=== PATIENT | male | born 1970 | race African-American/Black ===

== ENCOUNTER 2016-08-06 20:42 | Emergency (ER) | payer BC ==
[~2016-08-06] VITALS: Ht 165.1 cm; Wt 59.0 kg
[~2016-08-06 20:42] MED LIST: ALBUTEROL INH; ALBUTEROL NEB; HYDR-971 PO; OXYC-323 PO; POLY17PO5 PO; TRAM50TA PO
[2016-08-06 21:31] VITALS: BP 115/65
--- NOTE | 2016-08-07 00:28 | PHYS DOC ---
Past Medical History Past Medical History: Asthma, COPD Past Surgical History: Other Additional Past Surgical Histo: hernia repair Alcohol Use: Heavy Drug Use: Marijuana Adult General Chief Complaint Chief Complaint: ABDOMINAL PAIN HPI HPI Patient is a 46 year old male who presents with intermittent right lower quadrant abdominal pain over his right inguinal hernia incision since increasing his work activity lately. This is been bothersome over the past 2 days. Whenever he is moving heavy materials at work, he gets a sharp/achy pain about his hernia incision. He denies pain currently. He denies testicle pain, scrotal swelling, abdominal wall bulge, nausea or vomiting, diarrhea, constipation, fever or chills. Review of Systems Review of Systems Constitutional: Denies fever or chills [] Eyes: Denies change in visual acuity, redness, or eye pain [] HENT: Denies nasal congestion or sore throat [] Respiratory: Denies cough or shortness of breath [] Cardiovascular: No additional information not addressed in HPI [] GI: Denies nausea, vomiting, bloody stools or diarrhea [] : Denies dysuria or hematuria [] Musculoskeletal: Denies back pain or joint pain [] Integument: Denies rash or skin lesions [] Neurologic: Denies headache, focal weakness or sensory changes [] Endocrine: Denies polyuria or polydipsia [] Allergies Allergies Allergies Coded Allergies Type Severity Reaction Last Updated Verified No Known Drug Allergies 03/07/16 No Physical Exam Physical Exam Constitutional: Well developed, well nourished, no acute distress, non-toxic appearance. [] HENT: Normocephalic, atraumatic, bilateral external ears normal, oropharynx moist, nose normal. [] Eyes: PERRLA, EOMI. [] Neck: Normal range of motion, supple. [] Cardiovascular:Heart rate regular rhythm [] Lungs & Thorax: Bilateral breath sounds clear to auscultation [] Abdomen: Bowel sounds normal, soft, minimal tenderness over right lower quadrant incision with no palpable or visual abnormality, well healed incision scar. No palpable inguinal hernia on genitourinary exam. [] Skin: Warm, dry, no erythema, no rash. [] Back: Normal range of motion. [] Extremities: ROM intact, no edema. [] Neurologic: Alert and oriented X 3, normal motor function, normal sensory function, no focal deficits noted. [] Psychologic: Affect normal, judgement normal, mood normal. [] Current Patient Data Vital Signs Vital Signs Date Time Temp Pulse Resp B/P Pulse Ox O2 Delivery O2 Flow Rate FiO2 08/06/16 21:31 97.4 70 18 115/65 96 Room Air 97.4 Course & Med Decision Making Course & Med Decision Making He appears well on exam. No imaging indicated at this time. Encouraged him to follow-up with his primary care doctor and surgeon. Return precautions given. He understands and agrees with plan. Dragon Disclaimer Dragon Disclaimer This electronic medical record was generated, in whole or in part, using a voice recognition dictation system. Departure Departure Impression: Primary Impression: Abdominal pain Disposition: HOME, SELF-CARE Condition: STABLE Referrals: CRISTINO HO MD (PCP) Patient Instructions: Hernia, Surgical Repair, Care After Additional Instructions: Take Tylenol or ibuprofen as needed for pain. Follow-up with your primary care doctor and general surgery. Please call for appointment. Return for any concerns. Problem Qualifiers Primary Impression: Abdominal pain Abdominal location: right lower quadrant Qualified Code: R10.31 - Right lower quadrant pain Mena DON MD Aug 07, 2016 00:28
== END 2016-08-07 00:41 | disposition home or self-care (01) ==
LOC: ER 20:42
DX: R10.31 Right lower quadrant pain (principal); J44.9 Chronic obstructive pulmonary disease, unspecified; J45.909 Unspecified asthma, uncomplicated; F12.10 Cannabis abuse, uncomplicated
CPT/HCPCS: 99284

== ENCOUNTER 2018-06-23 19:58 | Emergency (ER) | payer SELFPAY ==
[~2018-06-23] VITALS: Ht 167.6 cm; Wt 13.6 kg
[~2018-06-23 19:58] MED LIST changes: +HYDR-3164 PO; -HYDR-971 PO; -OXYC-323 PO; +OXYC1TAB15 PO; +POLY17PO29 PO; -POLY17PO5 PO
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
[2018-06-23] MEDS ORDERED: KETOROLAC 15 MG/ML VIAL. IV ONE (21:00)
--- NOTE | 2018-06-23 21:00 | RAD ---
EXAM: AP View of the chest DATE: 06/23/2018 8:29 PM INDICATION: CHEST PAIN COMPARISON: No Prior FINDINGS: The heart is not enlarged. Mediastinal and hilar contours are normal. No focal parenchymal airspace opacity. No pleural effusion or pneumothorax. IMPRESSION: 1. No radiographic evidence for acute cardiopulmonary process. Electronically signed by: Aramis Gray MD (06/23/2018 8:56 PM) [facility]
[2018-06-23 21:15] LABS: BASO # 0.1 x10^3/uL (0.0-0.2); BASO % 1 % (0-3); EOS # 0.1 x10^3/uL (0.0-0.7); EOS % 3 % (0-3); HEMATOCRIT 37.3 % (39.0-53.0); HEMOGLOBIN 12.9 g/dL (13.0-17.5); LYMPH # 2.6 x10^3/uL (1.0-4.8); LYMPH % 48 % (24-48); MEAN CORPUSCULAR HEMOGLOBIN 31 pg (25-35); MEAN CORPUSCULAR HGB CONC 35 g/dL (31-37); MEAN CORPUSCULAR VOLUME 90 fL (79-100); MONO # 0.3 x10^3/uL (0.0-1.1); MONO % 6 % (0-9); NEUT # 2.4 x10^3uL (1.8-7.7); NEUT % 43 % (31-73); PLATELET COUNT 205 x10^3/uL (140-400); RED BLOOD COUNT 4.15 x10^6/uL (4.30-5.70); RED CELL DISTRIBUTION WIDTH 13.1 % (11.5-14.5); WHITE BLOOD COUNT 5.5 x10^3/uL (4.0-11.0)
[2018-06-23 21:25] VITALS: BP 100/51
[2018-06-23 21:27] LABS: CALCIUM 8.8 mg/dL (8.5-10.1); CREATININE 1.5 mg/dL (0.7-1.3); GFR 60.7; POTASSIUM 3.5 mmol/L (3.5-5.1)
[2018-06-23 21:33] LABS: ALBUMIN 3.3 g/dL (3.4-5.0); MAGNESIUM 1.7 mg/dL (1.8-2.4); TOTAL BILIRUBIN 0.3 mg/dL (0.2-1.0); TOTAL PROTEIN 6.7 g/dL (6.4-8.2)
[2018-06-23 21:50] LABS: PROTHROMBIN TIME PATIENT 12.6 SEC (11.7-14.0)
[2018-06-23 22:04] LABS: D-DIMER 0.39 ug/mlFEU (0.00-0.50)
[2018-06-23] MEDS ORDERED: MELO7.5T29 PO (22:14)
--- NOTE | 2018-06-24 06:45 | EKG ---
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
== END 2018-06-23 22:22 | disposition home or self-care (01) ==
LOC: ER 19:58
DX: R07.89 Other chest pain (principal); F10.20 Alcohol dependence, uncomplicated; J44.9 Chronic obstructive pulmonary disease, unspecified; Y90.9 Presence of alcohol in blood, level not specified
CPT/HCPCS: 36415; 71045; 80053; 83690; 83735; 83880; 84484; 85025; 85379; 85610; 93005; 96374; 99284; J1885

== ENCOUNTER 2018-12-07 17:27 | Emergency (ER) | payer SELFPAY ==
[~2018-12-07] VITALS: Ht 165.1 cm; Wt 59.0 kg
[~2018-12-07 17:27] MED LIST changes: +MELO7.5T29 PO
[2018-12-07 17:53] VITALS: BP 115/68
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
[2018-12-07] MEDS ORDERED: PERM60CR12 TP (18:23)
[2018-12-07] MEDS ORDERED: HYDR25TA PO (18:23)
== END 2018-12-07 18:32 | disposition home or self-care (01) ==
LOC: ER 17:27
DX: S60.469A Insect bite (nonvenomous) of unspecified finger, initial encounter (principal); S90.466A Insect bite (nonvenomous), unspecified lesser toe(s), initial encounter; J44.9 Chronic obstructive pulmonary disease, unspecified; F10.20 Alcohol dependence, uncomplicated; Y90.9 Presence of alcohol in blood, level not specified; W57.XXXA Bitten or stung by nonvenomous insect and other nonvenomous arthropods, initial encounter; Y93.89 Activity, other specified; Y92.89 Other specified places as the place of occurrence of the external cause; Y99.8 Other external cause status
CPT/HCPCS: 99283

== ENCOUNTER 2019-03-10 12:56 | Inpatient (IN) | payer SELFPAY ==
[~2019-03-10] VITALS: Ht 165.1 cm; Wt 50.8 kg
[~2019-03-10 12:56] MED LIST changes: +HYDR25TA PO; +PERM60CR12 TP
[2019-03-10] MEDS ORDERED: IV NORMAL SALINE 1000ML BAG 1,000 ML IV ONE (13:45)
[2019-03-10] MEDS ORDERED: PROCHLORPERAZINE 10 MG/2 ML VIAL. IV ONE (13:45)
[2019-03-10 13:54] LABS: BASO % 1 % (0-3); EOS # 0.1 x10^3/uL (0.0-0.7); EOS % 2 % (0-3); HEMATOCRIT 43.3 % (39.0-53.0); HEMOGLOBIN 14.5 g/dL (13.0-17.5); LYMPH # 2.2 x10^3/uL (1.0-4.8); LYMPH % 37 % (24-48); MEAN CORPUSCULAR HEMOGLOBIN 30 pg (25-35); MEAN CORPUSCULAR HGB CONC 34 g/dL (31-37); MEAN CORPUSCULAR VOLUME 90 fL (79-100); MONO # 0.4 x10^3/uL (0.0-1.1); MONO % 6 % (0-9); NEUT # 3.2 x10^3/uL (1.8-7.7); NEUT % 54 % (31-73); PLATELET COUNT 286 x10^3/uL (140-400); RED BLOOD COUNT 4.84 x10^6/uL (4.30-5.70); RED CELL DISTRIBUTION WIDTH 13.7 % (11.5-14.5)
[2019-03-10 13:56] LABS: BILIRUBIN,URINE NEGATIVE (NEG); CLARITY,URINE CLEAR; COLOR,URINE YELLOW; NITRITE,URINE NEGATIVE (NEG); PH,URINE 7.5; PROTEIN,URINE NEGATIVE (NEG-TRACE)
--- NOTE | 2019-03-10 14:03 | RAD ---
Examination: CT HEAD WO CONTRAST History: Headache, lightheadedness Comparison/Correlation: None Findings: Axial images of the head were obtained without contrast. Ventricles are normal size. No intracranial hemorrhage, midline shift, or mass effect. Globes and optic nerves are unremarkable. Minimal posterior to the right ethmoid air cells evident. Impression: No suspicious process. PQRS Compliance Statement: One or more of the following individualized dose reduction techniques were utilized for this examination: 1. Automated exposure control 2. Adjustment of the mA and/or kV according to patient size 3. Use of iterative reconstruction technique Electronically signed by: Jake Lorenzana MD (03/10/2019 2:00 PM) [facility]
[2019-03-10 14:04] LABS: BARBITURATES NEG (NEG); BENZODIAZEPINES NEG (NEG); CANNABINOIDS POS (NEG); COCAINE NEG (NEG); METHADONE NEG (NEG); OPIATES NEG (NEG); PHENCYCLIDINE NEG (NEG)
[2019-03-10 14:07] LABS: AMPHETAMINE/METHAMPHETAMINE POS (NEG)
[2019-03-10 14:13] LABS: RBC,URINE 0 /HPF (0-2); WBC,URINE RARE /HPF (0-4)
[2019-03-10 14:14] LABS: BACTERIA,URINE 0 /HPF (0-FEW)
--- NOTE | 2019-03-10 14:23 | RAD ---
CHEST PA LATERAL History: COPD. Comparison: June 23, 2018 Findings: No consolidation or pleural effusion. Normal heart size. Hyperinflation. Right lower lobe calcified granuloma posteriorly, unchanged. Impression: 1. No acute cardiopulmonary process. Electronically signed by: Ernesto Castorena DO (03/10/2019 2:20 PM) [id number]
[2019-03-10 15:22] LABS: CALCIUM 8.4 mg/dL (8.5-10.1); GFR 96.9; POTASSIUM 3.7 mmol/L (3.5-5.1)
[2019-03-10 15:28] LABS: ALBUMIN 3.2 g/dL (3.4-5.0); ALBUMIN/GLOBULIN RATIO 1.1 (1.0-1.7); TOTAL BILIRUBIN 0.5 mg/dL (0.2-1.0); TOTAL PROTEIN 6.1 g/dL (6.4-8.2)
--- NOTE | 2019-03-10 15:32 | EKG ---
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
[2019-03-10] MEDS ORDERED: MECLIZINE HCL 12.5 MG TABLET. PO ONE (16:15)
[2019-03-10] MEDS ORDERED: ONDANSETRON PF 4 MG/2 ML VIAL. IV PRN (17:30)
[2019-03-10] MEDS ORDERED: ACETAMINOPHEN 325 MG TABLET. PO PRN (17:30)
[2019-03-10 19:00] VITALS: BP 99/50
--- NOTE | 2019-03-10 19:20 | NUR ---
Pt arrived to the floor via cart with Er nurse at 1910. There were no telemetry leads to put pt on telemetry, called group home supervisor and she is going to work on getting more leads. Pt is currently stable and resting comfortably in bed.
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
[2019-03-10 23:55] VITALS: BP 105/67
[2019-03-11 03:31] VITALS: BP 110/75
[2019-03-11 07:00] VITALS: BP 103/71
[2019-03-11] MEDS ORDERED: MECLIZINE HCL 12.5 MG TABLET. PO PRN (09:00)
[2019-03-11 11:00] VITALS: BP 89/56
--- NOTE | 2019-03-11 11:02 | PDOC ---
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 hypotension, volume depleted admit consult Neurology. P.r.n. Antivert, home meds, DVT prophylaxis. Full code. Frequent labs, PT, OT. iv fluids 26 min pt exam, chart review, > 50% of time spent with exam, chart review, pt care coordination Vitals Vitals Vital Signs Date Time Temp Pulse Resp B/P (MAP) Pulse Ox O2 Delivery O2 Flow Rate FiO2 03/11/19 07:00 98.2 50 16 103/71 (82) 100 Room Air 98.2 Physical Exam Physical Exam GENERAL: No apparent distress. Alert and oriented. HEENT: Head is normocephalic, atraumatic, pupils were equally round and reactive to light and accommodation. NECK: Supple, no JVD, no thyromegaly was noted. LUNGS: Clear to auscultation in all lung au without rhonchi or wheezing. HEART: RRR, S1, S2 present. Peripheral pulses intact, no obvious murmurs were noted. ABDOMEN: Soft, nontender. Positive bowel sounds no organomegaly, normal bowel sounds. EXTREMITIES: Without any cyanosis, clubbing, or edema. Pedal pulses intact, Homans sign is negative. NEUROLOGIC: He has dizziness with standing and has nystagmus to the left. PSYCHIATRIC: Normal affect, normal mood. Stable. SKIN: No ulcerations or rashes, good skin turgor, no jaundice. VASCULAR: Good capillary refill, neurovascular bundle appears to be intact. General: Alert, Oriented X3, Cooperative, No acute distress Heart: Regular rate Lungs: Clear Abdomen: Soft, No tenderness Extremities: No cyanosis Labs LABS CHEST PA LATERAL History: COPD. Comparison: June 23, 2018 Findings: No consolidation or pleural effusion. Normal heart size. Hyperinflation. Right lower lobe calcified granuloma posteriorly, unchanged. Impression: 1. No acute cardiopulmonary process. Electronically signed by: Ernesto Castorena DO (03/10/2019 2:20 PM) [id number] Examination: CT HEAD WO CONTRAST History: Headache, lightheadedness Comparison/Correlation: None Findings: Axial images of the head were obtained without contrast. Ventricles are normal size. No intracranial hemorrhage, midline shift, or mass effect. Globes and optic nerves are unremarkable. Minimal posterior to the right ethmoid air cells evident. Impression: No suspicious process. PQRS Compliance Statement: One or more of the following individualized dose reduction techniques were utilized for this examination: 1. Automated exposure control 2. Adjustment of the mA and/or kV according to patient size 3. Use of iterative reconstruction technique Electronically signed by: Jake Lorenzana MD (03/10/2019 2:00 PM) [facility] Laboratory Tests Test 03/10/19 13:15 03/10/19 13:18 03/10/19 13:41 03/10/19 14:45 Glucose (Fingerstick) 88 mg/dL (70-99) Urine Collection Type Unknown Urine Color Yellow Urine Clarity Clear Urine pH 7.5 Urine Specific [place] 1.025 Urine Protein Negative mg/dL (NEG-TRACE) Urine Glucose (UA) Negative mg/dL (NEG) Urine Ketones (Stick) Negative mg/dL (NEG) Urine Blood Negative (NEG) Urine Nitrite Negative (NEG) Urine Bilirubin Negative (NEG) Urine Urobilinogen Dipstick 1.0 mg/dL (0.2 mg/dL) Urine Leukocyte Esterase Negative (NEG) Urine RBC 0 /HPF (0-2) Urine WBC Rare /HPF (0-4) Urine Squamous Epithelial Cells None /LPF Urine Bacteria 0 /HPF (0-FEW) Urine Opiates Screen Neg (NEG) Urine Methadone Screen Neg (NEG) Urine Barbiturates Neg (NEG) Urine Phencyclidine Screen Neg (NEG) Urine Amphetamine/Methamphetamine Pos (NEG) Urine Benzodiazepines Screen Neg (NEG) Urine Cocaine Screen Neg (NEG) Urine Cannabinoids Screen Pos (NEG) Urine Ethyl Alcohol Neg (NEG) White Blood Count 6.0 x10^3/uL (4.0-11.0) Red Blood Count 4.84 x10^6/uL (4.30-5.70) Hemoglobin 14.5 g/dL (13.0-17.5) Hematocrit 43.3 % (39.0-53.0) Mean Corpuscular Volume 90 fL (79-100) Mean Corpuscular Hemoglobin 30 pg (25-35) Mean Corpuscular Hemoglobin Concent 34 g/dL (31-37) Red Cell Distribution Width 13.7 % (11.5-14.5) Platelet Count 286 x10^3/uL (140-400) Neutrophils (%) (Auto) 54 % (31-73) Lymphocytes (%) (Auto) 37 % (24-48) Monocytes (%) (Auto) 6 % (0-9) Eosinophils (%) (Auto) 2 % (0-3) Basophils (%) (Auto) 1 % (0-3) Neutrophils # (Auto) 3.2 x10^3/uL (1.8-7.7) Lymphocytes # (Auto) 2.2 x10^3/uL (1.0-4.8) Monocytes # (Auto) 0.4 x10^3/uL (0.0-1.1) Eosinophils # (Auto) 0.1 x10^3/uL (0.0-0.7) Basophils # (Auto) 0.0 x10^3/uL (0.0-0.2) Sodium Level 144 mmol/L (136-145) Potassium Level 3.7 mmol/L (3.5-5.1) Chloride Level 106 mmol/L (98-107) Carbon Dioxide Level 31 mmol/L (21-32) Anion Gap 7 (6-14) Blood Urea Nitrogen 13 mg/dL (8-26) Creatinine 1.0 mg/dL (0.7-1.3) Estimated GFR (Cockcroft-Gault) 96.9 BUN/Creatinine Ratio 13 (6-20) Glucose Level 92 mg/dL (70-99) Calcium Level 8.4 mg/dL (8.5-10.1) Total Bilirubin 0.5 mg/dL (0.2-1.0) Aspartate Amino Transf (AST/SGOT) 17 U/L (15-37) Alanine Aminotransferase (ALT/SGPT) 23 U/L (16-63) Alkaline Phosphatase 66 U/L (46-116) Troponin I Quantitative < 0.017 ng/mL (0.000-0.055) Total Protein 6.1 g/dL (6.4-8.2) Albumin 3.2 g/dL (3.4-5.0) Albumin/Globulin Ratio 1.1 (1.0-1.7) Test 03/10/19 20:45 Glucose (Fingerstick) 91 mg/dL (70-99) Troponin I Quantitative < 0.017 ng/mL (0.000-0.055) Assessment and Plan Assessmemt and Plan Problems Medical Problems: (1) Dizziness Status: Acute (2) Light-headed feeling Status: Acute Comment Review of Relevant I have reviewed the following items tank (where applicable) has been applied. Labs Laboratory Tests Test 03/10/19 13:15 03/10/19 13:18 03/10/19 13:41 03/10/19 14:45 Glucose (Fingerstick) 88 mg/dL (70-99) Urine Collection Type Unknown Urine Color Yellow Urine Clarity Clear Urine pH 7.5 Urine Specific [place] 1.025 Urine Protein Negative mg/dL (NEG-TRACE) Urine Glucose (UA) Negative mg/dL (NEG) Urine Ketones (Stick) Negative mg/dL (NEG) Urine Blood Negative (NEG) Urine Nitrite Negative (NEG) Urine Bilirubin Negative (NEG) Urine Urobilinogen Dipstick 1.0 mg/dL (0.2 mg/dL) Urine Leukocyte Esterase Negative (NEG) Urine RBC 0 /HPF (0-2) Urine WBC Rare /HPF (0-4) Urine Squamous Epithelial Cells None /LPF Urine Bacteria 0 /HPF (0-FEW) Urine Opiates Screen Neg (NEG) Urine Methadone Screen Neg (NEG) Urine Barbiturates Neg (NEG) Urine Phencyclidine Screen Neg (NEG) Urine Amphetamine/Methamphetamine Pos (NEG) Urine Benzodiazepines Screen Neg (NEG) Urine Cocaine Screen Neg (NEG) Urine Cannabinoids Screen Pos (NEG) Urine Ethyl Alcohol Neg (NEG) White Blood Count 6.0 x10^3/uL (4.0-11.0) Red Blood Count 4.84 x10^6/uL (4.30-5.70) Hemoglobin 14.5 g/dL (13.0-17.5) Hematocrit 43.3 % (39.0-53.0) Mean Corpuscular Volume 90 fL (79-100) Mean Corpuscular Hemoglobin 30 pg (25-35) Mean Corpuscular Hemoglobin Concent 34 g/dL (31-37) Red Cell Distribution Width 13.7 % (11.5-14.5) Platelet Count 286 x10^3/uL (140-400) Neutrophils (%) (Auto) 54 % (31-73) Lymphocytes (%) (Auto) 37 % (24-48) Monocytes (%) (Auto) 6 % (0-9) Eosinophils (%) (Auto) 2 % (0-3) Basophils (%) (Auto) 1 % (0-3) Neutrophils # (Auto) 3.2 x10^3/uL (1.8-7.7) Lymphocytes # (Auto) 2.2 x10^3/uL (1.0-4.8) Monocytes # (Auto) 0.4 x10^3/uL (0.0-1.1) Eosinophils # (Auto) 0.1 x10^3/uL (0.0-0.7) Basophils # (Auto) 0.0 x10^3/uL (0.0-0.2) Sodium Level 144 mmol/L (136-145) Potassium Level 3.7 mmol/L (3.5-5.1) Chloride Level 106 mmol/L (98-107) Carbon Dioxide Level 31 mmol/L (21-32) Anion Gap 7 (6-14) Blood Urea Nitrogen 13 mg/dL (8-26) Creatinine 1.0 mg/dL (0.7-1.3) Estimated GFR (Cockcroft-Gault) 96.9 BUN/Creatinine Ratio 13 (6-20) Glucose Level 92 mg/dL (70-99) Calcium Level 8.4 mg/dL (8.5-10.1) Total Bilirubin 0.5 mg/dL (0.2-1.0) Aspartate Amino Transf (AST/SGOT) 17 U/L (15-37) Alanine Aminotransferase (ALT/SGPT) 23 U/L (16-63) Alkaline Phosphatase 66 U/L (46-116) Troponin I Quantitative < 0.017 ng/mL (0.000-0.055) Total Protein 6.1 g/dL (6.4-8.2) Albumin 3.2 g/dL (3.4-5.0) Albumin/Globulin Ratio 1.1 (1.0-1.7) Test 03/10/19 20:45 Glucose (Fingerstick) 91 mg/dL (70-99) Troponin I Quantitative < 0.017 ng/mL (0.000-0.055) Laboratory Tests Test 03/10/19 13:15 03/10/19 13:18 03/10/19 13:41 03/10/19 14:45 Glucose (Fingerstick) 88 mg/dL (70-99) Urine Collection Type Unknown Urine Color Yellow Urine Clarity Clear Urine pH 7.5 Urine Specific [place] 1.025 Urine Protein Negative mg/dL (NEG-TRACE) Urine Glucose (UA) Negative mg/dL (NEG) Urine Ketones (Stick) Negative mg/dL (NEG) Urine Blood Negative (NEG) Urine Nitrite Negative (NEG) Urine Bilirubin Negative (NEG) Urine Urobilinogen Dipstick 1.0 mg/dL (0.2 mg/dL) Urine Leukocyte Esterase Negative (NEG) Urine RBC 0 /HPF (0-2) Urine WBC Rare /HPF (0-4) Urine Squamous Epithelial Cells None /LPF Urine Bacteria 0 /HPF (0-FEW) Urine Opiates Screen Neg (NEG) Urine Methadone Screen Neg (NEG) Urine Barbiturates Neg (NEG) Urine Phencyclidine Screen Neg (NEG) Urine Amphetamine/Methamphetamine Pos (NEG) Urine Benzodiazepines Screen Neg (NEG) Urine Cocaine Screen Neg (NEG) Urine Cannabinoids Screen Pos (NEG) Urine Ethyl Alcohol Neg (NEG) White Blood Count 6.0 x10^3/uL (4.0-11.0) Red Blood Count 4.84 x10^6/uL (4.30-5.70) Hemoglobin 14.5 g/dL (13.0-17.5) Hematocrit 43.3 % (39.0-53.0) Mean Corpuscular Volume 90 fL (79-100) Mean Corpuscular Hemoglobin 30 pg (25-35) Mean Corpuscular Hemoglobin Concent 34 g/dL (31-37) Red Cell Distribution Width 13.7 % (11.5-14.5) Platelet Count 286 x10^3/uL (140-400) Neutrophils (%) (Auto) 54 % (31-73) Lymphocytes (%) (Auto) 37 % (24-48) Monocytes (%) (Auto) 6 % (0-9) Eosinophils (%) (Auto) 2 % (0-3) Basophils (%) (Auto) 1 % (0-3) Neutrophils # (Auto) 3.2 x10^3/uL (1.8-7.7) Lymphocytes # (Auto) 2.2 x10^3/uL (1.0-4.8) Monocytes # (Auto) 0.4 x10^3/uL (0.0-1.1) Eosinophils # (Auto) 0.1 x10^3/uL (0.0-0.7) Basophils # (Auto) 0.0 x10^3/uL (0.0-0.2) Sodium Level 144 mmol/L (136-145) Potassium Level 3.7 mmol/L (3.5-5.1) Chloride Level 106 mmol/L (98-107) Carbon Dioxide Level 31 mmol/L (21-32) Anion Gap 7 (6-14) Blood Urea Nitrogen 13 mg/dL (8-26) Creatinine 1.0 mg/dL (0.7-1.3) Estimated GFR (Cockcroft-Gault) 96.9 BUN/Creatinine Ratio 13 (6-20) Glucose Level 92 mg/dL (70-99) Calcium Level 8.4 mg/dL (8.5-10.1) Total Bilirubin 0.5 mg/dL (0.2-1.0) Aspartate Amino Transf (AST/SGOT) 17 U/L (15-37) Alanine Aminotransferase (ALT/SGPT) 23 U/L (16-63) Alkaline Phosphatase 66 U/L (46-116) Troponin I Quantitative < 0.017 ng/mL (0.000-0.055) Total Protein 6.1 g/dL (6.4-8.2) Albumin 3.2 g/dL (3.4-5.0) Albumin/Globulin Ratio 1.1 (1.0-1.7) Test 03/10/19 20:45 Glucose (Fingerstick) 91 mg/dL (70-99) Troponin I Quantitative < 0.017 ng/mL (0.000-0.055) Medications Current Medications Sodium Chloride 1,000 ml @ 1,000 mls/hr 1X ONCE IV Last administered on 03/10/19at 14:13; Start 03/10/19 at 13:45; Stop 03/10/19 at 14:44; Status DC Prochlorperazine Edisylate (Compazine) 10 mg 1X ONCE IV Last administered on 03/10/19at 14:13; Start 03/10/19 at 13:45; Stop 03/10/19 at 13:48; Status DC Meclizine HCl (Antivert) 25 mg 1X ONCE PO Last administered on 03/10/19at 16:58; Start 03/10/19 at 16:15; Stop 03/10/19 at 16:16; Status DC Ondansetron HCl (Zofran) 4 mg PRN Q8HRS PRN IV NAUSEA/VOMITING; Start 03/10/19 at 17:30; Stop 03/11/19 at 17:29 Acetaminophen (Tylenol) 650 mg PRN Q4HRS PRN PO FEVER; Start 03/10/19 at 17:30; Stop 03/11/19 at 17:29 Meclizine HCl (Antivert) 12.5 mg PRN Q6HRS PRN PO DIZZINESS; Start 03/11/19 at 09:00 Active Scripts Active Permethrin 60 Gm Cream..g. 1 Carl TP ONCE Hydroxyzine Hcl 25 Mg Tablet 1 Tab PO TID Meloxicam 7.5 Mg Tablet 7.5 Mg PO DAILY Miralax (Polyethylene Glycol 3350) 17 Gm Powd.pack 1 Packet PO DAILY Reported Percocet 5-325 Mg Tablet (Oxycodone/Acetaminophen) 1 Each Tablet 1-2 Tab PO Q4HRS [Albuterol] 2 Puff INH PRN PRN Vitals/I & O Vital Sign - Last 24 Hours 03/10/19 03/10/19 03/10/19 03/10/19 13:18 13:42 14:08 14:12 Temp 97.7 97.7 Pulse 50 70 57 55 Resp 16 16 16 16 B/P (MAP) 102/69 (80) Pulse Ox 100 99 99 98 O2 Delivery Room Air 03/10/19 03/10/19 03/10/19 03/10/19 16:35 17:05 17:35 18:05 Pulse 53 53 51 51 Resp 16 16 16 16 Pulse Ox 98 99 99 99 03/10/19 03/10/19 03/10/19 03/10/19 18:35 19:00 20:03 23:55 Temp 98.0 98.2 98.0 98.2 Pulse 57 54 53 Resp 16 16 16 B/P (MAP) 99/50 (66) 105/67 (80) Pulse Ox 100 96 100 O2 Delivery Room Air Room Air Room Air 03/11/19 03/11/19 03:31 07:00 Temp 98.4 98.2 98.4 98.2 Pulse 52 50 Resp 16 16 B/P (MAP) 110/75 (87) 103/71 (82) Pulse Ox 100 100 O2 Delivery Room Air Room Air Intake and Output 03/10/19 03/10/19 03/11/19 14:59 22:59 06:59 Intake Total 1400 ml 440 ml Balance 1400 ml 440 ml CRISTINO CAHVIS MD Mar 11, 2019 11:02
[2019-03-11] MEDS ORDERED: LORazepam 0.5 MG TABLET PO PRN (11:15)
[2019-03-11] MEDS ORDERED: SODIUM PHOSPHATES 19/7GM 133 ML ENEMA. PR PRN (11:15)
[2019-03-11] MEDS ORDERED: ALBUTEROL SULFATE 2.5 MG/3 ML NEBU. NEB PRN (11:15)
[2019-03-11] MEDS ORDERED: MAG HYDROX/ALUMINUM HYD/SIMETH 30 ML ORAL.SUSP PO PRN (11:15)
[2019-03-11] MEDS ORDERED: ZOLPIDEM 5 MG TABLET. PO PRN (11:15)
[2019-03-11] MEDS ORDERED: cloNIDine HCL 0.1 MG TABLET PO PRN (11:15)
[2019-03-11] MEDS ORDERED: ACETAMINOPHEN 325 MG TABLET. PO PRN (11:15)
[2019-03-11] MEDS ORDERED: ONDANSETRON PF 4 MG/2 ML VIAL. IV PRN (11:15)
[2019-03-11] MEDS ORDERED: DOCUSATE SODIUM 100 MG CAPSULE. PO PRN (11:15)
[2019-03-11] MEDS ORDERED: 0.9 % SODIUM CHLORIDE 10 ML DISP.SYRIN. IV PRN (11:15)
[2019-03-11] MEDS ORDERED: diphenhydrAMINE 50 MG/ML VIAL IVP PRN (11:15)
[2019-03-11] MEDS: IV NORMAL SALINE 1000ML BAG 1,000 ML IV SCH ×2 (13:00→21:02)
--- NOTE | 2019-03-11 13:41 | PDOC2 ---
NEUROLOGY CONSULT Date of Admission Date of Admission DATE: 03/11/19 TIME: 13:37 Reason for Consult Reason for Consult: Vertigo Referring Physician Referring Physician: Dr. Trujillo Source Source: Chart review, Patient History of Present Illness History of Present Illness The patient is a 48-year-old right-handed male who started noticing some fullness in his sinuses as well as some vertigo about 3 or 4 days ago. There is no diplopia, dysphagia, dysarthria, hearing loss, but he does have a lifelong history of tinnitus. He is feeling much better today after receiving meclizine. There is no history of stroke, seizure, or head injury. 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 Current Medications Current Medications Current Medications Sodium Chloride 1,000 ml @ 1,000 mls/hr 1X ONCE IV Last administered on 03/10/19at 14:13; Start 03/10/19 at 13:45; Stop 03/10/19 at 14:44; Status DC Prochlorperazine Edisylate (Compazine) 10 mg 1X ONCE IV Last administered on 03/10/19at 14:13; Start 03/10/19 at 13:45; Stop 03/10/19 at 13:48; Status DC Meclizine HCl (Antivert) 25 mg 1X ONCE PO Last administered on 03/10/19at 16:58; Start 03/10/19 at 16:15; Stop 03/10/19 at 16:16; Status DC Ondansetron HCl (Zofran) 4 mg PRN Q8HRS PRN IV NAUSEA/VOMITING; Start 03/10/19 at 17:30; Stop 03/11/19 at 12:16; Status DC Acetaminophen (Tylenol) 650 mg PRN Q4HRS PRN PO FEVER; Start 03/10/19 at 17:30; Stop 03/11/19 at 12:16; Status DC Meclizine HCl (Antivert) 12.5 mg PRN Q6HRS PRN PO DIZZINESS; Start 03/11/19 at 09:00 Sodium Chloride (Normal Saline Flush) 3 ml QSHIFT PRN IV AFTER MEDS AND BLOOD DRAWS; Start 03/11/19 at 11:15 Sodium Chloride 1,000 ml @ 100 mls/hr Q10H IV ; Start 03/11/19 at 11:02 Ondansetron HCl (Zofran) 4 mg PRN Q4HRS PRN IV NAUSEA/VOMITING; Start 03/11/19 at 11:15 Zolpidem Tartrate (Ambien) 5 mg PRN QHS PRN PO INSOMNIA; Start 03/11/19 at 11:15 Acetaminophen (Tylenol) 650 mg PRN Q4HRS PRN PO TEMP OVER 100.4F OR MILD PAIN; Start 03/11/19 at 11:15 Al Hydroxide/Mg Hydroxide (Mylanta Plus Xs) 30 ml PRN DAILY PRN PO HEARTBURN / GAS; Start 03/11/19 at 11:15 Clonidine HCl (Catapres) 0.1 mg PRN Q6HRS PRN PO SBP>160 OR DBP>90; Start 03/11/19 at 11:15 Sodium Monofluorophosphate (Fleet Adult) 133 ml PRN DAILY PRN [place] CONSTIPATION; Start 03/11/19 at 11:15 Diphenhydramine HCl (Benadryl) 25 mg PRN Q4HRS PRN IVP ITCHING; Start 03/11/19 at 11:15 Docusate Sodium (Colace) 100 mg PRN BID PRN PO CONSTIPATION; Start 03/11/19 at 11:15 Albuterol Sulfate (Ventolin Neb Soln) 2.5 mg PRN Q4HRS PRN NEB SHORTNESS OF BREATH; Start 03/11/19 at 11:15 Lorazepam (Ativan) 0.5 mg PRN Q4HRS PRN PO ANXIETY / AGITATION; Start 03/11/19 at 11:15 Enoxaparin Sodium (Lovenox 40mg Syringe) 40 mg DAILY SQ ; Start 03/12/19 at 09:00 Active Scripts Active Permethrin 60 Gm Cream..g. 1 Carl TP ONCE Hydroxyzine Hcl 25 Mg Tablet 1 Tab PO TID Meloxicam 7.5 Mg Tablet 7.5 Mg PO DAILY Miralax (Polyethylene Glycol 3350) 17 Gm Powd.pack 1 Packet PO DAILY Reported Percocet 5-325 Mg Tablet (Oxycodone/Acetaminophen) 1 Each Tablet 1-2 Tab PO Q4HRS [Albuterol] 2 Puff INH PRN PRN Allergies Allergies: Coded Allergies: No Known Drug Allergies (Unverified , 03/07/16) ROS Review of System Negative for fever, chills, weight loss, shortness of breath, chest pain, indigestion, hematochezia, melena, and dysuria. Full 14-point review of systems is negative. Physical Exam Physical Examination General: Well-developed, well-nourished black male in no acute distress HEENT: Normocephalic and�atraumatic. Tympanic membranes clear.�Temporal arteries�pulsatile and nontender.� Neck: Supple without bruit, no meningismus� Musculoskeletal: Stability:�see neurologic. Gait exam:�see neurologic. Tone:�see neurologic.�Strength:�see neurologic.� Neurological: Mental Status:�intact, orientation, memory, attention span/concentration, language, fund of knowledge normal. Cranial Nerves:�Pupils equal and reactive to light, extraocular movements are�intact, visual ua are full to confrontation. Facial sensation is normal. There is no facial asymmetry. Vestibulo-ocular reflex is intact. Palate elevates and tongue protrudes in midline. All other cranial related problems are negative except as mentioned before.�Reflexes:�2+ and symmetric with flexor plantar responses. Motor:�5/5 strength with normal tone and bulk. Coordination:�Finger-nose finger and [id number] testing are normal. Rapid alternating movements and fine finger movements are intact. Gait:�Normal, including tandem. Sensory:�Normal pinprick, vibration, light touch, proprioception.� Vitals VITALS Vital Signs Date Time Temp Pulse Resp B/P (MAP) Pulse Ox O2 Delivery O2 Flow Rate FiO2 03/11/19 11:00 98.1 56 16 89/56 (67) 98 Room Air 98.1 Labs Labs Laboratory Tests Test 03/10/19 13:15 03/10/19 13:18 03/10/19 13:41 03/10/19 14:45 Glucose (Fingerstick) 88 mg/dL (70-99) Urine Collection Type Unknown Urine Color Yellow Urine Clarity Clear Urine pH 7.5 Urine Specific [place] 1.025 Urine Protein Negative mg/dL (NEG-TRACE) Urine Glucose (UA) Negative mg/dL (NEG) Urine Ketones (Stick) Negative mg/dL (NEG) Urine Blood Negative (NEG) Urine Nitrite Negative (NEG) Urine Bilirubin Negative (NEG) Urine Urobilinogen Dipstick 1.0 mg/dL (0.2 mg/dL) Urine Leukocyte Esterase Negative (NEG) Urine RBC 0 /HPF (0-2) Urine WBC Rare /HPF (0-4) Urine Squamous Epithelial Cells None /LPF Urine Bacteria 0 /HPF (0-FEW) Urine Opiates Screen Neg (NEG) Urine Methadone Screen Neg (NEG) Urine Barbiturates Neg (NEG) Urine Phencyclidine Screen Neg (NEG) Urine Amphetamine/Methamphetamine Pos (NEG) Urine Benzodiazepines Screen Neg (NEG) Urine Cocaine Screen Neg (NEG) Urine Cannabinoids Screen Pos (NEG) Urine Ethyl Alcohol Neg (NEG) White Blood Count 6.0 x10^3/uL (4.0-11.0) Red Blood Count 4.84 x10^6/uL (4.30-5.70) Hemoglobin 14.5 g/dL (13.0-17.5) Hematocrit 43.3 % (39.0-53.0) Mean Corpuscular Volume 90 fL (79-100) Mean Corpuscular Hemoglobin 30 pg (25-35) Mean Corpuscular Hemoglobin Concent 34 g/dL (31-37) Red Cell Distribution Width 13.7 % (11.5-14.5) Platelet Count 286 x10^3/uL (140-400) Neutrophils (%) (Auto) 54 % (31-73) Lymphocytes (%) (Auto) 37 % (24-48) Monocytes (%) (Auto) 6 % (0-9) Eosinophils (%) (Auto) 2 % (0-3) Basophils (%) (Auto) 1 % (0-3) Neutrophils # (Auto) 3.2 x10^3/uL (1.8-7.7) Lymphocytes # (Auto) 2.2 x10^3/uL (1.0-4.8) Monocytes # (Auto) 0.4 x10^3/uL (0.0-1.1) Eosinophils # (Auto) 0.1 x10^3/uL (0.0-0.7) Basophils # (Auto) 0.0 x10^3/uL (0.0-0.2) Sodium Level 144 mmol/L (136-145) Potassium Level 3.7 mmol/L (3.5-5.1) Chloride Level 106 mmol/L (98-107) Carbon Dioxide Level 31 mmol/L (21-32) Anion Gap 7 (6-14) Blood Urea Nitrogen 13 mg/dL (8-26) Creatinine 1.0 mg/dL (0.7-1.3) Estimated GFR (Cockcroft-Gault) 96.9 BUN/Creatinine Ratio 13 (6-20) Glucose Level 92 mg/dL (70-99) Calcium Level 8.4 mg/dL (8.5-10.1) Total Bilirubin 0.5 mg/dL (0.2-1.0) Aspartate Amino Transf (AST/SGOT) 17 U/L (15-37) Alanine Aminotransferase (ALT/SGPT) 23 U/L (16-63) Alkaline Phosphatase 66 U/L (46-116) Troponin I Quantitative < 0.017 ng/mL (0.000-0.055) Total Protein 6.1 g/dL (6.4-8.2) Albumin 3.2 g/dL (3.4-5.0) Albumin/Globulin Ratio 1.1 (1.0-1.7) Test 03/10/19 20:45 Glucose (Fingerstick) 91 mg/dL (70-99) Troponin I Quantitative < 0.017 ng/mL (0.000-0.055) Laboratory Tests Test 03/10/19 13:41 03/10/19 14:45 03/10/19 20:45 White Blood Count 6.0 x10^3/uL (4.0-11.0) Red Blood Count 4.84 x10^6/uL (4.30-5.70) Hemoglobin 14.5 g/dL (13.0-17.5) Hematocrit 43.3 % (39.0-53.0) Mean Corpuscular Volume 90 fL (79-100) Mean Corpuscular Hemoglobin 30 pg (25-35) Mean Corpuscular Hemoglobin Concent 34 g/dL (31-37) Red Cell Distribution Width 13.7 % (11.5-14.5) Platelet Count 286 x10^3/uL (140-400) Neutrophils (%) (Auto) 54 % (31-73) Lymphocytes (%) (Auto) 37 % (24-48) Monocytes (%) (Auto) 6 % (0-9) Eosinophils (%) (Auto) 2 % (0-3) Basophils (%) (Auto) 1 % (0-3) Neutrophils # (Auto) 3.2 x10^3/uL (1.8-7.7) Lymphocytes # (Auto) 2.2 x10^3/uL (1.0-4.8) Monocytes # (Auto) 0.4 x10^3/uL (0.0-1.1) Eosinophils # (Auto) 0.1 x10^3/uL (0.0-0.7) Basophils # (Auto) 0.0 x10^3/uL (0.0-0.2) Sodium Level 144 mmol/L (136-145) Potassium Level 3.7 mmol/L (3.5-5.1) Chloride Level 106 mmol/L (98-107) Carbon Dioxide Level 31 mmol/L (21-32) Anion Gap 7 (6-14) Blood Urea Nitrogen 13 mg/dL (8-26) Creatinine 1.0 mg/dL (0.7-1.3) Estimated GFR (Cockcroft-Gault) 96.9 BUN/Creatinine Ratio 13 (6-20) Glucose Level 92 mg/dL (70-99) Calcium Level 8.4 mg/dL (8.5-10.1) Total Bilirubin 0.5 mg/dL (0.2-1.0) Aspartate Amino Transf (AST/SGOT) 17 U/L (15-37) Alanine Aminotransferase (ALT/SGPT) 23 U/L (16-63) Alkaline Phosphatase 66 U/L (46-116) Troponin I Quantitative < 0.017 ng/mL (0.000-0.055) < 0.017 ng/mL (0.000-0.055) Total Protein 6.1 g/dL (6.4-8.2) Albumin 3.2 g/dL (3.4-5.0) Albumin/Globulin Ratio 1.1 (1.0-1.7) Glucose (Fingerstick) 91 mg/dL (70-99) Images Images CT HEAD WO CONTRAST History: Headache, lightheadedness Comparison/Correlation: None Findings: Axial images of the head were obtained without contrast. Ventricles are normal size. No intracranial hemorrhage, midline shift, or mass effect. Globes and optic nerves are unremarkable. Minimal posterior to the right ethmoid air cells evident. Impression: No suspicious process. Assessment/Plan Assessment/Plan Impression: As his exam is now normal, it is difficult to know for sure, but history is certainly consistent with vestibular neuronitis which is now resolved. I find no evidence of central nervous system disease such as stroke or brain tumor. Recommendations: Okay for discharge on when necessary meclizine Follow-up with neurology as needed. Thank you for letting me help with the patient's care. CHARBEL ZARATE MD Mar 11, 2019 13:41
[2019-03-11] MEDS ORDERED: IV NORMAL SALINE 1000ML BAG 1,000 ML IV ONE (14:30)
[2019-03-11] MEDS ORDERED: ALBUTEROL INH PRN (14:30)
[2019-03-11 15:00] VITALS: BP 94/58
[2019-03-11 19:50] VITALS: BP 115/78
[2019-03-11] MEDS: hydrOXYzine 25 MG TABLET PO SCH (21:11)
--- NOTE | 2019-03-11 22:04 | EKG ---
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1970 Requested By: CRISTINO CHAVIS Order Number: [id number] Reading MD: Measurements Intervals [place] Rate: 40 P: 152 DC: 102 QRS: 152 QRSD: 76 T: 154 QT: 436 QTc: 360 Interpretive Statements SINUS BRADYCARDIA LEFT ATRIAL ABNORMALITY ABNORMAL RIGHT AXIS DEVIATION NON SPECIFIC QRS ABNORMALITY QRS(T) CONTOUR ABNORMALITY CONSISTENT WITH HIGH LATERAL INFARCT AGE UNDETERMINED NON SPECIFIC ST DEPRESSION ABNORMAL ECG RI6.02 Compared to ECG 06/23/2018 20:35:45 Right-axis deviation now present Myocardial infarct finding now present Sinus rhythm no longer present ST (T wave) deviation still present
[2019-03-11 23:50] VITALS: BP 106/80
[2019-03-12 03:50] VITALS: BP 116/81
[2019-03-12] MEDS: IV NORMAL SALINE 1000ML BAG 1,000 ML IV SCH (04:12)
[2019-03-12 07:00] VITALS: BP 111/73
--- NOTE | 2019-03-12 07:46 | PDOC ---
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 hypotension, volume depleted bradycardia, CARDIOLOGY CONSULTED METH AND THC POS IN UDS admit consult Neurology. P.r.n. Antivert, home meds, DVT prophylaxis. Full code. Frequent labs, PT, OT. iv fluids tele consult cardiology, pt refuses to stay for cardiologyconsult today 26 min pt exam, chart review d/c planning , > 50% of time spent with exam, chart review, pt care coordination Vitals Vitals Vital Signs Date Time Temp Pulse Resp B/P (MAP) Pulse Ox O2 Delivery O2 Flow Rate FiO2 03/12/19 03:50 98.7 45 18 116/81 (93) 99 Room Air 98.7 Physical Exam Physical Exam GENERAL: No apparent distress. Alert and oriented. HEENT: Head is normocephalic, atraumatic, pupils were equally round and reactive to light and accommodation. NECK: Supple, no JVD, no thyromegaly was noted. LUNGS: Clear to auscultation in all lung au without rhonchi or wheezing. HEART: RRR, S1, S2 present. Peripheral pulses intact, no obvious murmurs were noted. ABDOMEN: Soft, nontender. Positive bowel sounds no organomegaly, normal bowel sounds. EXTREMITIES: Without any cyanosis, clubbing, or edema. Pedal pulses intact, Homans sign is negative. NEUROLOGIC: He has dizziness with standing and has nystagmus to the left. PSYCHIATRIC: Normal affect, normal mood. Stable. SKIN: No ulcerations or rashes, good skin turgor, no jaundice. VASCULAR: Good capillary refill, neurovascular bundle appears to be intact. General: Alert, Oriented X3, Cooperative, No acute distress Heart: Regular rate, Normal S1, Normal S2, No murmurs Lungs: Clear Abdomen: Normal bowel sounds, Soft, No tenderness Extremities: No clubbing, No cyanosis Skin: No significant lesion Assessment and Plan Assessmemt and Plan Problems Medical Problems: (1) Dizziness Status: Acute (2) Light-headed feeling Status: Acute Comment Review of Relevant I have reviewed the following items tank (where applicable) has been applied. Labs Laboratory Tests Test 03/10/19 13:15 03/10/19 13:18 03/10/19 13:41 03/10/19 14:45 Glucose (Fingerstick) 88 mg/dL (70-99) Urine Collection Type Unknown Urine Color Yellow Urine Clarity Clear Urine pH 7.5 Urine Specific [place] 1.025 Urine Protein Negative mg/dL (NEG-TRACE) Urine Glucose (UA) Negative mg/dL (NEG) Urine Ketones (Stick) Negative mg/dL (NEG) Urine Blood Negative (NEG) Urine Nitrite Negative (NEG) Urine Bilirubin Negative (NEG) Urine Urobilinogen Dipstick 1.0 mg/dL (0.2 mg/dL) Urine Leukocyte Esterase Negative (NEG) Urine RBC 0 /HPF (0-2) Urine WBC Rare /HPF (0-4) Urine Squamous Epithelial Cells None /LPF Urine Bacteria 0 /HPF (0-FEW) Urine Opiates Screen Neg (NEG) Urine Methadone Screen Neg (NEG) Urine Barbiturates Neg (NEG) Urine Phencyclidine Screen Neg (NEG) Urine Amphetamine/Methamphetamine Pos (NEG) Urine Benzodiazepines Screen Neg (NEG) Urine Cocaine Screen Neg (NEG) Urine Cannabinoids Screen Pos (NEG) Urine Ethyl Alcohol Neg (NEG) White Blood Count 6.0 x10^3/uL (4.0-11.0) Red Blood Count 4.84 x10^6/uL (4.30-5.70) Hemoglobin 14.5 g/dL (13.0-17.5) Hematocrit 43.3 % (39.0-53.0) Mean Corpuscular Volume 90 fL (79-100) Mean Corpuscular Hemoglobin 30 pg (25-35) Mean Corpuscular Hemoglobin Concent 34 g/dL (31-37) Red Cell Distribution Width 13.7 % (11.5-14.5) Platelet Count 286 x10^3/uL (140-400) Neutrophils (%) (Auto) 54 % (31-73) Lymphocytes (%) (Auto) 37 % (24-48) Monocytes (%) (Auto) 6 % (0-9) Eosinophils (%) (Auto) 2 % (0-3) Basophils (%) (Auto) 1 % (0-3) Neutrophils # (Auto) 3.2 x10^3/uL (1.8-7.7) Lymphocytes # (Auto) 2.2 x10^3/uL (1.0-4.8) Monocytes # (Auto) 0.4 x10^3/uL (0.0-1.1) Eosinophils # (Auto) 0.1 x10^3/uL (0.0-0.7) Basophils # (Auto) 0.0 x10^3/uL (0.0-0.2) Sodium Level 144 mmol/L (136-145) Potassium Level 3.7 mmol/L (3.5-5.1) Chloride Level 106 mmol/L (98-107) Carbon Dioxide Level 31 mmol/L (21-32) Anion Gap 7 (6-14) Blood Urea Nitrogen 13 mg/dL (8-26) Creatinine 1.0 mg/dL (0.7-1.3) Estimated GFR (Cockcroft-Gault) 96.9 BUN/Creatinine Ratio 13 (6-20) Glucose Level 92 mg/dL (70-99) Calcium Level 8.4 mg/dL (8.5-10.1) Total Bilirubin 0.5 mg/dL (0.2-1.0) Aspartate Amino Transf (AST/SGOT) 17 U/L (15-37) Alanine Aminotransferase (ALT/SGPT) 23 U/L (16-63) Alkaline Phosphatase 66 U/L (46-116) Troponin I Quantitative < 0.017 ng/mL (0.000-0.055) Total Protein 6.1 g/dL (6.4-8.2) Albumin 3.2 g/dL (3.4-5.0) Albumin/Globulin Ratio 1.1 (1.0-1.7) Test 03/10/19 20:45 Glucose (Fingerstick) 91 mg/dL (70-99) Troponin I Quantitative < 0.017 ng/mL (0.000-0.055) Medications Current Medications Sodium Chloride 1,000 ml @ 1,000 mls/hr 1X ONCE IV Last administered on 03/10/19at 14:13; Start 03/10/19 at 13:45; Stop 03/10/19 at 14:44; Status DC Prochlorperazine Edisylate (Compazine) 10 mg 1X ONCE IV Last administered on 03/10/19at 14:13; Start 03/10/19 at 13:45; Stop 03/10/19 at 13:48; Status DC Meclizine HCl (Antivert) 25 mg 1X ONCE PO Last administered on 03/10/19at 16:58; Start 03/10/19 at 16:15; Stop 03/10/19 at 16:16; Status DC Ondansetron HCl (Zofran) 4 mg PRN Q8HRS PRN IV NAUSEA/VOMITING; Start 03/10/19 at 17:30; Stop 03/11/19 at 12:16; Status DC Acetaminophen (Tylenol) 650 mg PRN Q4HRS PRN PO FEVER; Start 03/10/19 at 17:30; Stop 03/11/19 at 12:16; Status DC Meclizine HCl (Antivert) 12.5 mg PRN Q6HRS PRN PO DIZZINESS; Start 03/11/19 at 09:00 Sodium Chloride (Normal Saline Flush) 3 ml QSHIFT PRN IV AFTER MEDS AND BLOOD DRAWS; Start 03/11/19 at 11:15 Sodium Chloride 1,000 ml @ 100 mls/hr Q10H IV Last administered on 03/12/19at 04:12; Start 03/11/19 at 11:02 Ondansetron HCl (Zofran) 4 mg PRN Q4HRS PRN IV NAUSEA/VOMITING; Start 03/11/19 at 11:15 Zolpidem Tartrate (Ambien) 5 mg PRN QHS PRN PO INSOMNIA; Start 03/11/19 at 11:15 Acetaminophen (Tylenol) 650 mg PRN Q4HRS PRN PO TEMP OVER 100.4F OR MILD PAIN; Start 03/11/19 at 11:15 Al Hydroxide/Mg Hydroxide (Mylanta Plus Xs) 30 ml PRN DAILY PRN PO HEARTBURN / GAS; Start 03/11/19 at 11:15 Clonidine HCl (Catapres) 0.1 mg PRN Q6HRS PRN PO SBP>160 OR DBP>90; Start 03/11/19 at 11:15 Sodium Monofluorophosphate (Fleet Adult) 133 ml PRN DAILY PRN [place] CONSTIPATION; Start 03/11/19 at 11:15 Diphenhydramine HCl (Benadryl) 25 mg PRN Q4HRS PRN IVP ITCHING; Start 03/11/19 at 11:15 Docusate Sodium (Colace) 100 mg PRN BID PRN PO CONSTIPATION; Start 03/11/19 at 11:15 Albuterol Sulfate (Ventolin Neb Soln) 2.5 mg PRN Q4HRS PRN NEB SHORTNESS OF BREATH; Start 03/11/19 at 11:15 Lorazepam (Ativan) 0.5 mg PRN Q4HRS PRN PO ANXIETY / AGITATION; Start 03/11/19 at 11:15 Enoxaparin Sodium (Lovenox 40mg Syringe) 40 mg DAILY SQ ; Start 03/12/19 at 09:00 Sodium Chloride 1,000 ml @ 1,000 mls/hr 1X ONCE IV Last administered on 03/11/19at 19:24; Start 03/11/19 at 14:30; Stop 03/11/19 at 15:29; Status DC Hydroxyzine HCl (Atarax) 25 mg TID PO Last administered on 03/11/19at 21:12; Start 03/11/19 at 21:00 Meloxicam (Mobic) 7.5 mg DAILY PO ; Start 03/12/19 at 09:00 Polyethylene Glycol (miraLAX PACKET) 17 gm DAILY PO ; Start 03/12/19 at 09:00 Non-Formulary Medication ([Albuterol] ) 2 puff PRN PRN INH SHORTNESS OF BREATH; Start 03/11/19 at 14:30; Status UNV Active Scripts Active Permethrin 60 Gm Cream..g. 1 Carl TP ONCE Hydroxyzine Hcl 25 Mg Tablet 1 Tab PO TID Meloxicam 7.5 Mg Tablet 7.5 Mg PO DAILY Miralax (Polyethylene Glycol 3350) 17 Gm Powd.pack 1 Packet PO DAILY Reported Percocet 5-325 Mg Tablet (Oxycodone/Acetaminophen) 1 Each Tablet 1-2 Tab PO Q4HRS [Albuterol] 2 Puff INH PRN PRN Vitals/I & O Vital Sign - Last 24 Hours 03/11/19 03/11/19 03/11/19 03/11/19 08:00 11:00 15:00 19:50 Temp 98.1 98.2 98.8 98.1 98.2 98.8 Pulse 56 62 47 Resp 16 18 18 B/P (MAP) 89/56 (67) 94/58 (70) 115/78 (90) Pulse Ox 98 100 100 O2 Delivery Room Air Room Air Room Air Room Air 03/11/19 03/11/19 03/12/19 20:00 23:50 03:50 Temp 98.6 98.7 98.6 98.7 Pulse 49 45 Resp 18 18 B/P (MAP) 106/80 (89) 116/81 (93) Pulse Ox 97 99 O2 Delivery Room Air Nasal Cannula Room Air Intake and Output 03/11/19 03/11/19 03/12/19 14:59 22:59 06:59 Intake Total 1400 ml Balance 1400 ml CRISTINO CHAVIS MD Mar 12, 2019 07:46
[2019-03-12] MEDS ORDERED: MELOXICAM 7.5 MG TABLET PO SCH (09:00)
[2019-03-12] MEDS ORDERED: POLYETHYLENE GLYCOL 3350 17 GM PACKET. PO SCH (09:00)
[2019-03-12] MEDS ORDERED: ENOXAPARIN 40 MG/0.4 ML SYRINGE. SQ SCH (09:00)
[2019-03-12] MEDS: hydrOXYzine 25 MG TABLET PO SCH (09:01)
--- NOTE | 2019-03-12 10:21 | PDOC ---
PROGRESS NOTES Assessment Problems Medical Problems: (1) Dizziness Status: Acute (2) Light-headed feeling Status: Acute Vestibular neuronitis which is now resolved. Hypotension, resolved. I find no evidence of central nervous system disease such as stroke or brain tumor. Plan Okay for discharge on when necessary meclizine Follow-up with neurology as needed. Subjective Feels fine, no complaints, wanted to go home yesterday Objective Vital Signs Date Time Temp Pulse Resp B/P (MAP) Pulse Ox O2 Delivery O2 Flow Rate FiO2 03/12/19 07:00 98.5 50 16 111/73 (86) 98 98.5 03/12/19 03:50 Room Air Intake and Output 03/12/19 06:59 Intake Total 1400 ml Balance 1400 ml Intake Oral 400 ml IV Total 1000 ml # Voids 4 PHYSICAL EXAM Alert. Oriented to time, place and person. PERRL. EOMI. CN: no focal findings. Muscle tone: normal. Muscle strength: 5/5 DTR: 2+ Plantar reflex: flexor Gait: normal. Sensory exam: no abnormal findings. No cerebellar signs elicited. Review of Relevant I have reviewed the following items tank (where applicable) has been applied. Labs Laboratory Tests Test 03/10/19 13:15 03/10/19 13:18 03/10/19 13:41 03/10/19 14:45 Glucose (Fingerstick) 88 mg/dL (70-99) Urine Collection Type Unknown Urine Color Yellow Urine Clarity Clear Urine pH 7.5 Urine Specific [place] 1.025 Urine Protein Negative mg/dL (NEG-TRACE) Urine Glucose (UA) Negative mg/dL (NEG) Urine Ketones (Stick) Negative mg/dL (NEG) Urine Blood Negative (NEG) Urine Nitrite Negative (NEG) Urine Bilirubin Negative (NEG) Urine Urobilinogen Dipstick 1.0 mg/dL (0.2 mg/dL) Urine Leukocyte Esterase Negative (NEG) Urine RBC 0 /HPF (0-2) Urine WBC Rare /HPF (0-4) Urine Squamous Epithelial Cells None /LPF Urine Bacteria 0 /HPF (0-FEW) Urine Opiates Screen Neg (NEG) Urine Methadone Screen Neg (NEG) Urine Barbiturates Neg (NEG) Urine Phencyclidine Screen Neg (NEG) Urine Amphetamine/Methamphetamine Pos (NEG) Urine Benzodiazepines Screen Neg (NEG) Urine Cocaine Screen Neg (NEG) Urine Cannabinoids Screen Pos (NEG) Urine Ethyl Alcohol Neg (NEG) White Blood Count 6.0 x10^3/uL (4.0-11.0) Red Blood Count 4.84 x10^6/uL (4.30-5.70) Hemoglobin 14.5 g/dL (13.0-17.5) Hematocrit 43.3 % (39.0-53.0) Mean Corpuscular Volume 90 fL (79-100) Mean Corpuscular Hemoglobin 30 pg (25-35) Mean Corpuscular Hemoglobin Concent 34 g/dL (31-37) Red Cell Distribution Width 13.7 % (11.5-14.5) Platelet Count 286 x10^3/uL (140-400) Neutrophils (%) (Auto) 54 % (31-73) Lymphocytes (%) (Auto) 37 % (24-48) Monocytes (%) (Auto) 6 % (0-9) Eosinophils (%) (Auto) 2 % (0-3) Basophils (%) (Auto) 1 % (0-3) Neutrophils # (Auto) 3.2 x10^3/uL (1.8-7.7) Lymphocytes # (Auto) 2.2 x10^3/uL (1.0-4.8) Monocytes # (Auto) 0.4 x10^3/uL (0.0-1.1) Eosinophils # (Auto) 0.1 x10^3/uL (0.0-0.7) Basophils # (Auto) 0.0 x10^3/uL (0.0-0.2) Sodium Level 144 mmol/L (136-145) Potassium Level 3.7 mmol/L (3.5-5.1) Chloride Level 106 mmol/L (98-107) Carbon Dioxide Level 31 mmol/L (21-32) Anion Gap 7 (6-14) Blood Urea Nitrogen 13 mg/dL (8-26) Creatinine 1.0 mg/dL (0.7-1.3) Estimated GFR (Cockcroft-Gault) 96.9 BUN/Creatinine Ratio 13 (6-20) Glucose Level 92 mg/dL (70-99) Calcium Level 8.4 mg/dL (8.5-10.1) Total Bilirubin 0.5 mg/dL (0.2-1.0) Aspartate Amino Transf (AST/SGOT) 17 U/L (15-37) Alanine Aminotransferase (ALT/SGPT) 23 U/L (16-63) Alkaline Phosphatase 66 U/L (46-116) Troponin I Quantitative < 0.017 ng/mL (0.000-0.055) Total Protein 6.1 g/dL (6.4-8.2) Albumin 3.2 g/dL (3.4-5.0) Albumin/Globulin Ratio 1.1 (1.0-1.7) Test 03/10/19 20:45 Glucose (Fingerstick) 91 mg/dL (70-99) Troponin I Quantitative < 0.017 ng/mL (0.000-0.055) Medications Current Medications Sodium Chloride 1,000 ml @ 1,000 mls/hr 1X ONCE IV Last administered on 03/10/19at 14:13; Start 03/10/19 at 13:45; Stop 03/10/19 at 14:44; Status DC Prochlorperazine Edisylate (Compazine) 10 mg 1X ONCE IV Last administered on 03/10/19at 14:13; Start 03/10/19 at 13:45; Stop 03/10/19 at 13:48; Status DC Meclizine HCl (Antivert) 25 mg 1X ONCE PO Last administered on 03/10/19at 16:58; Start 03/10/19 at 16:15; Stop 03/10/19 at 16:16; Status DC Ondansetron HCl (Zofran) 4 mg PRN Q8HRS PRN IV NAUSEA/VOMITING; Start 03/10/19 at 17:30; Stop 03/11/19 at 12:16; Status DC Acetaminophen (Tylenol) 650 mg PRN Q4HRS PRN PO FEVER; Start 03/10/19 at 17:30; Stop 03/11/19 at 12:16; Status DC Meclizine HCl (Antivert) 12.5 mg PRN Q6HRS PRN PO DIZZINESS; Start 03/11/19 at 09:00 Sodium Chloride (Normal Saline Flush) 3 ml QSHIFT PRN IV AFTER MEDS AND BLOOD DRAWS; Start 03/11/19 at 11:15 Sodium Chloride 1,000 ml @ 100 mls/hr Q10H IV Last administered on 03/12/19at 04:12; Start 03/11/19 at 11:02 Ondansetron HCl (Zofran) 4 mg PRN Q4HRS PRN IV NAUSEA/VOMITING; Start 03/11/19 at 11:15 Zolpidem Tartrate (Ambien) 5 mg PRN QHS PRN PO INSOMNIA; Start 03/11/19 at 11:15 Acetaminophen (Tylenol) 650 mg PRN Q4HRS PRN PO TEMP OVER 100.4F OR MILD PAIN; Start 03/11/19 at 11:15 Al Hydroxide/Mg Hydroxide (Mylanta Plus Xs) 30 ml PRN DAILY PRN PO HEARTBURN / GAS; Start 03/11/19 at 11:15 Clonidine HCl (Catapres) 0.1 mg PRN Q6HRS PRN PO SBP>160 OR DBP>90; Start 03/11/19 at 11:15 Sodium Monofluorophosphate (Fleet Adult) 133 ml PRN DAILY PRN [place] CONSTIPATION; Start 03/11/19 at 11:15 Diphenhydramine HCl (Benadryl) 25 mg PRN Q4HRS PRN IVP ITCHING; Start 03/11/19 at 11:15 Docusate Sodium (Colace) 100 mg PRN BID PRN PO CONSTIPATION; Start 03/11/19 at 11:15 Albuterol Sulfate (Ventolin Neb Soln) 2.5 mg PRN Q4HRS PRN NEB SHORTNESS OF BREATH; Start 03/11/19 at 11:15 Lorazepam (Ativan) 0.5 mg PRN Q4HRS PRN PO ANXIETY / AGITATION; Start 03/11/19 at 11:15 Enoxaparin Sodium (Lovenox 40mg Syringe) 40 mg DAILY SQ Last administered on 03/12/19at 09:03; Start 03/12/19 at 09:00 Sodium Chloride 1,000 ml @ 1,000 mls/hr 1X ONCE IV Last administered on 03/11/19at 19:24; Start 03/11/19 at 14:30; Stop 03/11/19 at 15:29; Status DC Hydroxyzine HCl (Atarax) 25 mg TID PO Last administered on 03/12/19at 09:03; Start 03/11/19 at 21:00 Meloxicam (Mobic) 7.5 mg DAILY PO Last administered on 03/12/19at 09:03; Start 03/12/19 at 09:00 Polyethylene Glycol (miraLAX PACKET) 17 gm DAILY PO ; Start 03/12/19 at 09:00 Non-Formulary Medication ([Albuterol] ) 2 puff PRN PRN INH SHORTNESS OF BREATH; Start 03/11/19 at 14:30; Status UNV Active Scripts Active Permethrin 60 Gm Cream..g. 1 Carl TP ONCE Hydroxyzine Hcl 25 Mg Tablet 1 Tab PO TID Meloxicam 7.5 Mg Tablet 7.5 Mg PO DAILY Miralax (Polyethylene Glycol 3350) 17 Gm Powd.pack 1 Packet PO DAILY Reported Percocet 5-325 Mg Tablet (Oxycodone/Acetaminophen) 1 Each Tablet 1-2 Tab PO Q4HRS [Albuterol] 2 Puff INH PRN PRN Vitals/I & O Vital Sign - Last 24 Hours 03/11/19 03/11/19 03/11/19 03/11/19 11:00 15:00 19:50 20:00 Temp 98.1 98.2 98.8 98.1 98.2 98.8 Pulse 56 62 47 Resp 16 18 18 B/P (MAP) 89/56 (67) 94/58 (70) 115/78 (90) Pulse Ox 98 100 100 O2 Delivery Room Air Room Air Room Air Room Air 03/11/19 03/12/19 03/12/19 23:50 03:50 07:00 Temp 98.6 98.7 98.5 98.6 98.7 98.5 Pulse 49 45 50 Resp 18 18 16 B/P (MAP) 106/80 (89) 116/81 (93) 111/73 (86) Pulse Ox 97 99 98 O2 Delivery Nasal Cannula Room Air Intake and Output 03/11/19 03/11/19 03/12/19 14:59 22:59 06:59 Intake Total 1400 ml Balance 1400 ml CHARBEL ZARATE MD Mar 12, 2019 10:21
--- NOTE | 2019-03-12 10:27 | NUR ---
SW following pt for dc planning. Chart reviewed and d/w RN. Pt lives at home with family and independent with ADL's. Pt is self pay. [facility] left health and community resource guide with RN.
--- NOTE | 2019-03-12 11:19 | CARD ---
MR#: [id number] Date of Study: 03/12/2019 Ordering Physician: RANJIT TORREZ, Referring Physician: RANJIT TORREZ Tech: Azul Pabon RDCS APPROVED REPORT EXAM: Two-dimensional and M-mode echocardiogram with Doppler and color Doppler. Other Information Quality : AverageHR: 45bpm Rhythm : Bradycardia INDICATION Dizziness and Vertigo 2D DIMENSIONS RVDd2.9 (2.9-3.5cm)Left Atrium(2D)3.1 (1.6-4.0cm) IVSd0.7 (0.7-1.1cm)Aortic Root(2D)2.9 (2.0-3.7cm) LVDd4.7 (3.9-5.9cm)LVOT Diameter1.9 (1.8-2.4cm) PWd0.8 (0.7-1.1cm)LVDs3.4 (2.5-4.0cm) FS (%) 27.2 %SV54.4 ml LVEF(%)53.0 (>50%) M-Mode DIMENSIONS Left Atrium(MM)3.10 (2.5-4.0cm)Aortic Root2.76 (2.2-3.7cm) Aortic Valve AoV Peak Ganesh.115.4cm/sAoV VTI23.3cm AO Peak GR.5.3mmHgLVOT Peak Ganesh.95.3cm/s AO Mean GR.3mmHgAVA (VMAX)2.40cm2 JOANA (VTI)2.50cm2 Mitral Valve MV E Mkrahrut46.0cm/sMV DECEL [id number] MV A Hkzdnfer98.9cm/sE/A Ratio1.9 Pulmonary Valve PV Peak Uxndutpz75.6cm/s Tricuspid Valve TR P. Nkhyobek165hv/sRAP [id number] TR Peak Gr.[id number] LEFT VENTRICLE The Left Ventricle is borderline dilated. There is borderline concentric left ventricular hypertrophy . Left ventricle systolic function is low normal. The Ejection Fraction is estimated at 50%. There is normal LV segmental wall motion. The left ventricular diastolic function and filling is normal for a ge. RIGHT VENTRICLE The right ventricle is normal size. There is normal right ventricular wall thickness. The right ventr icular systolic function is normal. ATRIA The left atrium size is normal. The right atrium size is normal. The interatrial septum is intact wit h no evidence for an atrial septal defect or patent foramen ovale as noted on 2-D or Doppler imaging. AORTIC VALVE The aortic valve is normal in structure and function. The aortic valve is trileaflet. Doppler and Col or Flow revealed no significant aortic regurgitation. There is no significant aortic valvular stenosi s. There is no aortic valvular vegetation. MITRAL VALVE The mitral valve is normal in structure and function. There is no evidence of mitral valve prolapse. There is no mitral valve stenosis. Doppler and Color Flow revealed no mitral valve regurgitation note d. TRICUSPID VALVE The tricuspid valve is normal in structure and function. Doppler and Color Flow revealed trace tricus pid regurgitation. The PA pressure was estimated at 14 mmHg. There is no tricuspid valve prolapse or vegetation. There is no tricuspid valve stenosis. PULMONIC VALVE The pulmonic valve is not well visualized. GREAT VESSELS The aortic root is normal in size. The ascending aorta is normal in size. The IVC is normal in size a nd collapses >50% with inspiration. PERICARDIAL EFFUSION There is no evidence of significant pericardial effusion. Critical Notification Critical Value: No <Conclusion> The Left Ventricle is borderline dilated. Left ventricle systolic function is low normal. The Ejection Fraction is estimated at 50%. There is borderline concentric left ventricular hypertrophy. Doppler and Color Flow revealed no significant aortic regurgitation. There is no significant aortic valvular stenosis. Doppler and Color Flow revealed no mitral valve regurgitation noted. Doppler and Color Flow revealed trace tricuspid regurgitation. The PA pressure was estimated at 14 mmHg. Signed by : Malcolm Padilla MD Electronically Approved : 03/12/2019 11:19:29
--- NOTE | 2019-03-12 12:03 | PDOC3 ---
Discharge Summary Date of Admission: Mar 10, 2019 Date of Discharge: Mar 12, 2019 Follow-Up: 3-5 days Admitting Diagnosis comment: discharge dx Intractable dizziness, resolved suspect inner ear disturbance POSSIBLE paper cone maker posterior circulation disease. hypotension, volume depleted bradycardia, CARDIOLOGY CONSULTED METH AND THC POS IN UDS admit consult Neurology. P.r.n. Antivert, home meds, DVT prophylaxis. Full code. Frequent labs, PT, OT. iv fluids tele consult cardiology, pt refuses to stay for cardiologyconsult today 26 min pt exam, chart review d/c planning , > 50% of time spent with exam, chart review, pt care coordination Vitals Vitals Vital Signs Date Time Temp Pulse Resp B/P (MAP) Pulse Ox O2 Delivery O2 Flow Rate FiO2 03/12/19 03:50 98.7 45 18 116/81 (93) 99 Room Air 98.7 Physical Exam Physical Exam GENERAL: No apparent distress. Alert and oriented. HEENT: Head is normocephalic, atraumatic, pupils were equally round and reactive to light and accommodation. NECK: Supple, no JVD, no thyromegaly was noted. LUNGS: Clear to auscultation in all lung au without rhonchi or wheezing. HEART: RRR, S1, S2 present. Peripheral pulses intact, no obvious murmurs were noted. ABDOMEN: Soft, nontender. Positive bowel sounds no organomegaly, normal bowel sounds. EXTREMITIES: Without any cyanosis, clubbing, or edema. Pedal pulses intact, Homans sign is negative. NEUROLOGIC: He has dizziness with standing and has nystagmus to the left. PSYCHIATRIC: Normal affect, normal mood. Stable. SKIN: No ulcerations or rashes, good skin turgor, no jaundice. VASCULAR: Good capillary refill, neurovascular bundle appears to be intact. General: Alert, Oriented X3, Cooperative, No acute distress Heart: Regular rate, Normal S1, Normal S2, No murmurs Lungs: Clear Abdomen: Normal bowel sounds, Soft, No tenderness Extremities: No clubbing, No cyanosis Skin: No significant lesion FINAL DIAGNOSIS Problems Medical Problems: (1) Dizziness Status: Acute (2) Light-headed feeling Status: Acute Brief Hospital Course Mr. Bergeron is a 48 old [sex] who presented with [ dehydration, vertigo, drug abuse ] CONDITION AT DISCHARGE: Improved Discharge Medications Current Medications Sodium Chloride 1,000 ml @ 1,000 mls/hr 1X ONCE IV Last administered on 03/10/19at 14:13; Start 03/10/19 at 13:45; Stop 03/10/19 at 14:44; Status DC Prochlorperazine Edisylate (Compazine) 10 mg 1X ONCE IV Last administered on 03/10/19at 14:13; Start 03/10/19 at 13:45; Stop 03/10/19 at 13:48; Status DC Meclizine HCl (Antivert) 25 mg 1X ONCE PO Last administered on 03/10/19at 16:58; Start 03/10/19 at 16:15; Stop 03/10/19 at 16:16; Status DC Ondansetron HCl (Zofran) 4 mg PRN Q8HRS PRN IV NAUSEA/VOMITING; Start 03/10/19 at 17:30; Stop 03/11/19 at 12:16; Status DC Acetaminophen (Tylenol) 650 mg PRN Q4HRS PRN PO FEVER; Start 03/10/19 at 17:30; Stop 03/11/19 at 12:16; Status DC Meclizine HCl (Antivert) 12.5 mg PRN Q6HRS PRN PO DIZZINESS; Start 03/11/19 at 09:00 Sodium Chloride (Normal Saline Flush) 3 ml QSHIFT PRN IV AFTER MEDS AND BLOOD DRAWS; Start 03/11/19 at 11:15 Sodium Chloride 1,000 ml @ 100 mls/hr Q10H IV Last administered on 03/12/19at 04:12; Start 03/11/19 at 11:02 Ondansetron HCl (Zofran) 4 mg PRN Q4HRS PRN IV NAUSEA/VOMITING; Start 03/11/19 at 11:15 Zolpidem Tartrate (Ambien) 5 mg PRN QHS PRN PO INSOMNIA; Start 03/11/19 at 11:15 Acetaminophen (Tylenol) 650 mg PRN Q4HRS PRN PO TEMP OVER 100.4F OR MILD PAIN; Start 03/11/19 at 11:15 Al Hydroxide/Mg Hydroxide (Mylanta Plus Xs) 30 ml PRN DAILY PRN PO HEARTBURN / GAS; Start 03/11/19 at 11:15 Clonidine HCl (Catapres) 0.1 mg PRN Q6HRS PRN PO SBP>160 OR DBP>90; Start 03/11/19 at 11:15 Sodium Monofluorophosphate (Fleet Adult) 133 ml PRN DAILY PRN [place] CONSTIPATION; Start 03/11/19 at 11:15 Diphenhydramine HCl (Benadryl) 25 mg PRN Q4HRS PRN IVP ITCHING; Start 03/11/19 at 11:15 Docusate Sodium (Colace) 100 mg PRN BID PRN PO CONSTIPATION; Start 03/11/19 at 11:15 Albuterol Sulfate (Ventolin Neb Soln) 2.5 mg PRN Q4HRS PRN NEB SHORTNESS OF BREATH; Start 03/11/19 at 11:15 Lorazepam (Ativan) 0.5 mg PRN Q4HRS PRN PO ANXIETY / AGITATION; Start 03/11/19 at 11:15 Enoxaparin Sodium (Lovenox 40mg Syringe) 40 mg DAILY SQ Last administered on 03/12/19at 09:03; Start 03/12/19 at 09:00 Sodium Chloride 1,000 ml @ 1,000 mls/hr 1X ONCE IV Last administered on 03/11/19at 19:24; Start 03/11/19 at 14:30; Stop 03/11/19 at 15:29; Status DC Hydroxyzine HCl (Atarax) 25 mg TID PO Last administered on 03/12/19at 09:03; Start 03/11/19 at 21:00 Meloxicam (Mobic) 7.5 mg DAILY PO Last administered on 03/12/19at 09:03; Start 03/12/19 at 09:00 Polyethylene Glycol (miraLAX PACKET) 17 gm DAILY PO ; Start 03/12/19 at 09:00 Non-Formulary Medication ([Albuterol] ) 2 puff PRN PRN INH SHORTNESS OF BREATH; Start 03/11/19 at 14:30; Status UNV Active Scripts Active Permethrin 60 Gm Cream..g. 1 Carl TP ONCE Hydroxyzine Hcl 25 Mg Tablet 1 Tab PO TID Meloxicam 7.5 Mg Tablet 7.5 Mg PO DAILY Miralax (Polyethylene Glycol 3350) 17 Gm Powd.pack 1 Packet PO DAILY Reported Percocet 5-325 Mg Tablet (Oxycodone/Acetaminophen) 1 Each Tablet 1-2 Tab PO Q4HRS [Albuterol] 2 Puff INH PRN PRN Vital Signs Vital Signs Date Time Temp Pulse Resp B/P (MAP) Pulse Ox O2 Delivery O2 Flow Rate FiO2 03/12/19 08:00 Room Air 03/12/19 07:00 98.5 50 16 111/73 (86) 98 98.5 Labs Laboratory Tests Test 03/10/19 13:15 03/10/19 13:18 03/10/19 13:41 03/10/19 14:45 Glucose (Fingerstick) 88 mg/dL (70-99) Urine Collection Type Unknown Urine Color Yellow Urine Clarity Clear Urine pH 7.5 Urine Specific [place] 1.025 Urine Protein Negative mg/dL (NEG-TRACE) Urine Glucose (UA) Negative mg/dL (NEG) Urine Ketones (Stick) Negative mg/dL (NEG) Urine Blood Negative (NEG) Urine Nitrite Negative (NEG) Urine Bilirubin Negative (NEG) Urine Urobilinogen Dipstick 1.0 mg/dL (0.2 mg/dL) Urine Leukocyte Esterase Negative (NEG) Urine RBC 0 /HPF (0-2) Urine WBC Rare /HPF (0-4) Urine Squamous Epithelial Cells None /LPF Urine Bacteria 0 /HPF (0-FEW) Urine Opiates Screen Neg (NEG) Urine Methadone Screen Neg (NEG) Urine Barbiturates Neg (NEG) Urine Phencyclidine Screen Neg (NEG) Urine Amphetamine/Methamphetamine Pos (NEG) Urine Benzodiazepines Screen Neg (NEG) Urine Cocaine Screen Neg (NEG) Urine Cannabinoids Screen Pos (NEG) Urine Ethyl Alcohol Neg (NEG) White Blood Count 6.0 x10^3/uL (4.0-11.0) Red Blood Count 4.84 x10^6/uL (4.30-5.70) Hemoglobin 14.5 g/dL (13.0-17.5) Hematocrit 43.3 % (39.0-53.0) Mean Corpuscular Volume 90 fL (79-100) Mean Corpuscular Hemoglobin 30 pg (25-35) Mean Corpuscular Hemoglobin Concent 34 g/dL (31-37) Red Cell Distribution Width 13.7 % (11.5-14.5) Platelet Count 286 x10^3/uL (140-400) Neutrophils (%) (Auto) 54 % (31-73) Lymphocytes (%) (Auto) 37 % (24-48) Monocytes (%) (Auto) 6 % (0-9) Eosinophils (%) (Auto) 2 % (0-3) Basophils (%) (Auto) 1 % (0-3) Neutrophils # (Auto) 3.2 x10^3/uL (1.8-7.7) Lymphocytes # (Auto) 2.2 x10^3/uL (1.0-4.8) Monocytes # (Auto) 0.4 x10^3/uL (0.0-1.1) Eosinophils # (Auto) 0.1 x10^3/uL (0.0-0.7) Basophils # (Auto) 0.0 x10^3/uL (0.0-0.2) Sodium Level 144 mmol/L (136-145) Potassium Level 3.7 mmol/L (3.5-5.1) Chloride Level 106 mmol/L (98-107) Carbon Dioxide Level 31 mmol/L (21-32) Anion Gap 7 (6-14) Blood Urea Nitrogen 13 mg/dL (8-26) Creatinine 1.0 mg/dL (0.7-1.3) Estimated GFR (Cockcroft-Gault) 96.9 BUN/Creatinine Ratio 13 (6-20) Glucose Level 92 mg/dL (70-99) Calcium Level 8.4 mg/dL (8.5-10.1) Total Bilirubin 0.5 mg/dL (0.2-1.0) Aspartate Amino Transf (AST/SGOT) 17 U/L (15-37) Alanine Aminotransferase (ALT/SGPT) 23 U/L (16-63) Alkaline Phosphatase 66 U/L (46-116) Troponin I Quantitative < 0.017 ng/mL (0.000-0.055) Total Protein 6.1 g/dL (6.4-8.2) Albumin 3.2 g/dL (3.4-5.0) Albumin/Globulin Ratio 1.1 (1.0-1.7) Test 03/10/19 20:45 Glucose (Fingerstick) 91 mg/dL (70-99) Troponin I Quantitative < 0.017 ng/mL (0.000-0.055) Allergies Allergies Coded Allergies Type Severity Reaction Last Updated Verified No Known Drug Allergies 03/07/16 No Disposition/Orders: D/C to Home Patient Instructions d/c planning 26 min CRISTINO CHAVIS MD Mar 12, 2019 12:03
[2019-03-12] MEDS ORDERED: MECL12.52 PO (12:06)
--- NOTE | 2019-03-12 12:07 | DISCH ---
DISCHARGE INSTRUCTIONS Condition on Discharge Condition on Discharge: Guarded Activity After Discharge Activity Instructions for Disc: Avoid exertion Lifting Instructions after Dis: No heavy lifting Driving Instructions after Dis: Do not drive Diet after Discharge Diet after Discharge: Regular Checks after Discharge Checks after discharge: Check blood press - daily Contacting the DRJulio after DC Call your doctor for: If your condition worsens Warfarin Follow-Up Warfarin Follow UP: no illicit drug use CRISTINO CHAVIS MD Mar 12, 2019 12:07
--- NOTE | 2019-03-12 12:42 | PDOC2 ---
CONSULT Date of Consult Date of Consult DATE: 03/12/19 TIME: 12:41 Reason for Consult Reason for Consult: Dizziness and bradycardia Referring Physician Referring Physician: Dr. Trujillo Identification/Chief Complaint Chief Complaint Dizziness Source Source: Chart review, Patient History of Present Illness Reason for Visit: 48-year-old male presented with headache and dizziness and was diagnosed with vestibular neuronitis. He was found to have bradycardic episodes on telemetry prompting cardiology consult. He denied any previous history of arrhythmias. He denied any syncope in the past. He also denied any chest pain, orthopnea/PND or palpitations. Past Medical History Pulmonary: Asthma, COPD Past Surgical History Past Surgical History: Hernia Repair (ventral and bilateral inguinal) Current Problem List Problem List Problems Medical Problems: (1) Dizziness Status: Acute (2) Light-headed feeling Status: Acute Current Medications Current Medications Current Medications Sodium Chloride 1,000 ml @ 1,000 mls/hr 1X ONCE IV Last administered on 03/10/19at 14:13; Start 03/10/19 at 13:45; Stop 03/10/19 at 14:44; Status DC Prochlorperazine Edisylate (Compazine) 10 mg 1X ONCE IV Last administered on 03/10/19at 14:13; Start 03/10/19 at 13:45; Stop 03/10/19 at 13:48; Status DC Meclizine HCl (Antivert) 25 mg 1X ONCE PO Last administered on 03/10/19at 16:58; Start 03/10/19 at 16:15; Stop 03/10/19 at 16:16; Status DC Ondansetron HCl (Zofran) 4 mg PRN Q8HRS PRN IV NAUSEA/VOMITING; Start 03/10/19 at 17:30; Stop 03/11/19 at 12:16; Status DC Acetaminophen (Tylenol) 650 mg PRN Q4HRS PRN PO FEVER; Start 03/10/19 at 17:30; Stop 03/11/19 at 12:16; Status DC Meclizine HCl (Antivert) 12.5 mg PRN Q6HRS PRN PO DIZZINESS; Start 03/11/19 at 09:00 Sodium Chloride (Normal Saline Flush) 3 ml QSHIFT PRN IV AFTER MEDS AND BLOOD DRAWS; Start 03/11/19 at 11:15 Sodium Chloride 1,000 ml @ 100 mls/hr Q10H IV Last administered on 03/12/19at 04:12; Start 03/11/19 at 11:02 Ondansetron HCl (Zofran) 4 mg PRN Q4HRS PRN IV NAUSEA/VOMITING; Start 03/11/19 at 11:15 Zolpidem Tartrate (Ambien) 5 mg PRN QHS PRN PO INSOMNIA; Start 03/11/19 at 11:15 Acetaminophen (Tylenol) 650 mg PRN Q4HRS PRN PO TEMP OVER 100.4F OR MILD PAIN; Start 03/11/19 at 11:15 Al Hydroxide/Mg Hydroxide (Mylanta Plus Xs) 30 ml PRN DAILY PRN PO HEARTBURN / GAS; Start 03/11/19 at 11:15 Clonidine HCl (Catapres) 0.1 mg PRN Q6HRS PRN PO SBP>160 OR DBP>90; Start 03/11/19 at 11:15 Sodium Monofluorophosphate (Fleet Adult) 133 ml PRN DAILY PRN [place] CONSTIPATION; Start 03/11/19 at 11:15 Diphenhydramine HCl (Benadryl) 25 mg PRN Q4HRS PRN IVP ITCHING; Start 03/11/19 at 11:15 Docusate Sodium (Colace) 100 mg PRN BID PRN PO CONSTIPATION; Start 03/11/19 at 11:15 Albuterol Sulfate (Ventolin Neb Soln) 2.5 mg PRN Q4HRS PRN NEB SHORTNESS OF BREATH; Start 03/11/19 at 11:15 Lorazepam (Ativan) 0.5 mg PRN Q4HRS PRN PO ANXIETY / AGITATION; Start 03/11/19 at 11:15 Enoxaparin Sodium (Lovenox 40mg Syringe) 40 mg DAILY SQ Last administered on 03/12/19at 09:03; Start 03/12/19 at 09:00 Sodium Chloride 1,000 ml @ 1,000 mls/hr 1X ONCE IV Last administered on 03/11/19at 19:24; Start 03/11/19 at 14:30; Stop 03/11/19 at 15:29; Status DC Hydroxyzine HCl (Atarax) 25 mg TID PO Last administered on 03/12/19at 09:03; Start 03/11/19 at 21:00 Meloxicam (Mobic) 7.5 mg DAILY PO Last administered on 03/12/19at 09:03; Start 03/12/19 at 09:00 Polyethylene Glycol (miraLAX PACKET) 17 gm DAILY PO ; Start 03/12/19 at 09:00 Non-Formulary Medication ([Albuterol] ) 2 puff PRN PRN INH SHORTNESS OF BREATH; Start 03/11/19 at 14:30; Status UNV Active Scripts Active Meclizine Hcl 12.5 Mg Tablet 12.5 Mg PO PRN Q6HRS PRN 7 Days Hydroxyzine Hcl 25 Mg Tablet 1 Tab PO TID Meloxicam 7.5 Mg Tablet 7.5 Mg PO DAILY Miralax (Polyethylene Glycol 3350) 17 Gm Powd.pack 1 Packet PO DAILY Reported [Albuterol] 2 Puff INH PRN PRN Allergies Allergies: Coded Allergies: No Known Drug Allergies (Unverified , 03/07/16) ROS PSYCHOLOGICAL ROS: No: Hallucinations Eyes: No Loss of vision HEENT: No: Epistaxis Respiratory: No: Hemoptysis Cardiovascular: No Chest Pain Genitourinary: No Hematuria Neurological: Yes Dizziness; No Seizures Skin: No Rash Physical Exam General: Alert, Oriented X3 HEENT: Atraumatic, PERRLA Lungs: Clear to auscultation Heart: Regular rate Abdomen: Soft Extremities: No edema Psych/Mental Status: Mood NL Vitals VITALS Vital Signs Date Time Temp Pulse Resp B/P (MAP) Pulse Ox O2 Delivery O2 Flow Rate FiO2 03/12/19 08:00 Room Air 03/12/19 07:00 98.5 50 16 111/73 (86) 98 98.5 Labs Labs Laboratory Tests Test 03/10/19 13:15 03/10/19 13:18 03/10/19 13:41 03/10/19 14:45 Glucose (Fingerstick) 88 mg/dL (70-99) Urine Collection Type Unknown Urine Color Yellow Urine Clarity Clear Urine pH 7.5 Urine Specific [place] 1.025 Urine Protein Negative mg/dL (NEG-TRACE) Urine Glucose (UA) Negative mg/dL (NEG) Urine Ketones (Stick) Negative mg/dL (NEG) Urine Blood Negative (NEG) Urine Nitrite Negative (NEG) Urine Bilirubin Negative (NEG) Urine Urobilinogen Dipstick 1.0 mg/dL (0.2 mg/dL) Urine Leukocyte Esterase Negative (NEG) Urine RBC 0 /HPF (0-2) Urine WBC Rare /HPF (0-4) Urine Squamous Epithelial Cells None /LPF Urine Bacteria 0 /HPF (0-FEW) Urine Opiates Screen Neg (NEG) Urine Methadone Screen Neg (NEG) Urine Barbiturates Neg (NEG) Urine Phencyclidine Screen Neg (NEG) Urine Amphetamine/Methamphetamine Pos (NEG) Urine Benzodiazepines Screen Neg (NEG) Urine Cocaine Screen Neg (NEG) Urine Cannabinoids Screen Pos (NEG) Urine Ethyl Alcohol Neg (NEG) White Blood Count 6.0 x10^3/uL (4.0-11.0) Red Blood Count 4.84 x10^6/uL (4.30-5.70) Hemoglobin 14.5 g/dL (13.0-17.5) Hematocrit 43.3 % (39.0-53.0) Mean Corpuscular Volume 90 fL (79-100) Mean Corpuscular Hemoglobin 30 pg (25-35) Mean Corpuscular Hemoglobin Concent 34 g/dL (31-37) Red Cell Distribution Width 13.7 % (11.5-14.5) Platelet Count 286 x10^3/uL (140-400) Neutrophils (%) (Auto) 54 % (31-73) Lymphocytes (%) (Auto) 37 % (24-48) Monocytes (%) (Auto) 6 % (0-9) Eosinophils (%) (Auto) 2 % (0-3) Basophils (%) (Auto) 1 % (0-3) Neutrophils # (Auto) 3.2 x10^3/uL (1.8-7.7) Lymphocytes # (Auto) 2.2 x10^3/uL (1.0-4.8) Monocytes # (Auto) 0.4 x10^3/uL (0.0-1.1) Eosinophils # (Auto) 0.1 x10^3/uL (0.0-0.7) Basophils # (Auto) 0.0 x10^3/uL (0.0-0.2) Sodium Level 144 mmol/L (136-145) Potassium Level 3.7 mmol/L (3.5-5.1) Chloride Level 106 mmol/L (98-107) Carbon Dioxide Level 31 mmol/L (21-32) Anion Gap 7 (6-14) Blood Urea Nitrogen 13 mg/dL (8-26) Creatinine 1.0 mg/dL (0.7-1.3) Estimated GFR (Cockcroft-Gault) 96.9 BUN/Creatinine Ratio 13 (6-20) Glucose Level 92 mg/dL (70-99) Calcium Level 8.4 mg/dL (8.5-10.1) Total Bilirubin 0.5 mg/dL (0.2-1.0) Aspartate Amino Transf (AST/SGOT) 17 U/L (15-37) Alanine Aminotransferase (ALT/SGPT) 23 U/L (16-63) Alkaline Phosphatase 66 U/L (46-116) Troponin I Quantitative < 0.017 ng/mL (0.000-0.055) Total Protein 6.1 g/dL (6.4-8.2) Albumin 3.2 g/dL (3.4-5.0) Albumin/Globulin Ratio 1.1 (1.0-1.7) Test 03/10/19 20:45 Glucose (Fingerstick) 91 mg/dL (70-99) Troponin I Quantitative < 0.017 ng/mL (0.000-0.055) Assessment/Plan Assessment/Plan 1. Dizziness secondary to vestibular neuronitis. Continue current treatment per neurology team. 2. Sinus bradycardia, most probably vagally mediated. Telemetry did not show any significant pauses. Patient denied any syncope and near-syncope in the past. We will consider event monitor as an outpatient. Thank you for your consultation RANJIT TORREZ MD Mar 12, 2019 12:42
--- NOTE | 2019-03-12 13:00 | NUR ---
The patient claimed that he's not taking hydroxyzine anymore, prescribed prior admit for pruritus.
--- NOTE | 2019-03-12 14:04 | NUR ---
Discharge Note: [facility] Discharge instructions and discharge home medications reviewed with patient and a copy given. All questions have been answered and understanding verbalized. Prescription for meclizine called to [facility] pharmacy at 1300. The following instructions and handouts were given: Patient instructed to take meclizine as needed for dizziness. Handouts on dizziness, bradycardia give. Teaching done about importance why cardiology consult was done. Watch out for worsening of symptoms, call physician if worse. Follow up with PCP in a week. Follow up with Neurology as needed. Discontinued lines and drains: peripheral IV intact, patient tolerated removal, no complications noted. Patient discharged to home with self care, ambulatory. He left the unit at 1330, transpo c/o family friend.
== END 2019-03-12 13:30 | disposition home or self-care (01) | DRG 149 ==
LOC: ER 12:56 → 6 SOUTH 17:25
PROVIDERS: ADMIT Internal Medicine; ATTEND Internal Medicine
DX: H81.20 Vestibular neuronitis, unspecified ear (principal); J44.9 Chronic obstructive pulmonary disease, unspecified; E86.0 Dehydration; F12.90 Cannabis use, unspecified, uncomplicated; F17.210 Nicotine dependence, cigarettes, uncomplicated; I95.9 Hypotension, unspecified; R00.1 Bradycardia, unspecified; Z82.49 Family history of ischemic heart disease and other diseases of the circulatory system
CPT/HCPCS: 36415; 70450; 71046; 80053; 80307; 81001; 82962; 84484; 85025; 93005; 93306; 94799; 96361; 96374; J0780; J1650; J7030; J8597; 99285-25; G0378